=== PATIENT | male | born 1950 | race Caucasian/White ===

== ENCOUNTER 2016-10-04 10:03 | Inpatient (IN) | payer MEDICARE, BC ==
[2016-10-04] MEDS ORDERED: SODIUM CHLORIDE 0.9% 1,000 ML IV ONE (12:01)
[2016-10-04] MEDS ORDERED: PIPERACILLIN/TAZOBACTAM 3.375 GM in SODIUM CHLORIDE 0.9% MINIBAG 100 ML IV STA (14:41)
[2016-10-04] MEDS ORDERED: SODIUM CHLORIDE FLUSH 0.9% 10 ML SYRINGE IVP PRN (14:48)
[2016-10-04] MEDS: LACTATED RINGERS 1,000 ML IV SCH (17:12)
[2016-10-04] MEDS: INSULIN REGULAR HUMAN 100 UNIT/1 ML 10 ML MDV SUBQ SCH ×2 (17:16→23:44)
[2016-10-04] MEDS ORDERED: DOCUSATE SODIUM 250 MG CAPSULE PO SCH (21:00)
[2016-10-04] MEDS: PIPERACILLIN/TAZOBACTAM 3.375 GM in SODIUM CHLORIDE 0.9% MINIBAG 100 ML IV SCH (21:26)
[2016-10-04] MEDS: SODIUM CHLORIDE FLUSH 0.9% 10 ML SYRINGE IVP SCH (21:32)
[2016-10-05] MEDS: LACTATED RINGERS 1,000 ML IV SCH ×4 (03:25→23:28)
[2016-10-05] MEDS: PIPERACILLIN/TAZOBACTAM 3.375 GM in SODIUM CHLORIDE 0.9% MINIBAG 100 ML IV SCH ×4 (03:32→22:01)
[2016-10-05] MEDS: INSULIN REGULAR HUMAN 100 UNIT/1 ML 10 ML MDV SUBQ SCH ×2 (05:42→12:49)
[2016-10-05] MEDS: LOSARTAN 50 MG TABLET PO SCH ×2 (07:43→07:48)
[2016-10-05] MEDS: amLODIPine 5 MG TABLET PO SCH ×2 (07:43→07:48)
[2016-10-05] MEDS: ASPIRIN EC 81 MG TABLET PO SCH ×2 (07:44→16:22)
[2016-10-05] MEDS: SODIUM CHLORIDE FLUSH 0.9% 10 ML SYRINGE IVP SCH ×3 (07:44→22:04)
[2016-10-05] MEDS: CARVEDILOL 3.125 MG TABLET PO SCH ×2 (07:44→07:48)
[2016-10-05] MEDS ORDERED: ACETAMINOPHEN 1,000 MG/100 ML VIAL IV ONE (08:00)
[2016-10-05] MEDS ORDERED: fentaNYL 100 MCG/2 ML VIAL IVP ONE (08:00)
[2016-10-05] MEDS ORDERED: GLYCOPYRROLATE 1 MG/5 ML VIAL IVP ONE (08:00)
[2016-10-05] MEDS ORDERED: ROCURONIUM 50 MG/5 ML VIAL IVP ONE (08:00)
[2016-10-05] MEDS ORDERED: PROPOFOL 200 MG/20 ML VIAL IVP ONE (08:00)
[2016-10-05] MEDS ORDERED: MIDAZOLAM 2 MG/2 ML VIAL IVP ONE (08:00)
[2016-10-05] MEDS ORDERED: NEOSTIGMINE 1 MG/1 ML 10 ML MDV IVP ONE (08:00)
[2016-10-05] MEDS ORDERED: KETOROLAC 30 MG/ML VIAL IVP ONE (08:00)
[2016-10-05] MEDS ORDERED: LIDOCAINE-MPF 2% 5 ML VIAL IM ONE (08:00)
[2016-10-05] MEDS ORDERED: ePHEDrine 50 MG/ML VIAL IVP ONE (08:00)
[2016-10-05] MEDS ORDERED: ONDANSETRON 4 MG/2 ML VIAL IVP ONE (08:00)
[2016-10-05] MEDS ORDERED: POTASSIUM CHLORIDE 20 MEQ TABLET PO ONE (08:45)
[2016-10-05] MEDS ORDERED: FINASTERIDE 5 MG TABLET PO SCH ×2 (09:00→21:00)
[2016-10-05] MEDS ORDERED: TAMSULOSIN 0.4 MG CAPSULE PO SCH ×2 (09:00→21:00)
[2016-10-05] MEDS ORDERED: BUPIVACAINE 0.5%-EPI 1:200000 PF 30 ML VIAL SUBQ ONE ×2 (09:03)
[2016-10-05] MEDS ORDERED: LACTATED RINGERS 1,000 ML IV ONE (09:04)
[2016-10-05] MEDS ORDERED: IOTHALAMATE MEGLUMINE 50 ML VIAL IVP ONE (10:30)
[2016-10-05] MEDS: oxyCOD/ACETAMIN 5 MG/325 MG TABLET PO PRN ×2 (12:51→21:25)
[2016-10-05] MEDS: INSULIN ASPART 300 UNIT/3 ML PEN SUBQ SCH ×2 (17:14→21:26)
[2016-10-05] MEDS ORDERED: CALCIUM CARBONATE CHEW 500 MG TABLET PO PRN (21:40)
[2016-10-06] MEDS: PIPERACILLIN/TAZOBACTAM 3.375 GM in SODIUM CHLORIDE 0.9% MINIBAG 100 ML IV SCH ×3 (04:24→16:54)
[2016-10-06] MEDS: LACTATED RINGERS 1,000 ML IV SCH (04:24)
[2016-10-06] MEDS: SODIUM CHLORIDE FLUSH 0.9% 10 ML SYRINGE IVP SCH ×2 (04:24→13:36)
[2016-10-06] MEDS: oxyCOD/ACETAMIN 5 MG/325 MG TABLET PO PRN (04:33)
[2016-10-06] MEDS: LOSARTAN 50 MG TABLET PO SCH (08:43)
[2016-10-06] MEDS: CARVEDILOL 3.125 MG TABLET PO SCH (08:43)
[2016-10-06] MEDS: ASPIRIN EC 81 MG TABLET PO SCH ×2 (08:43→16:43)
[2016-10-06] MEDS: amLODIPine 5 MG TABLET PO SCH (08:43)
[2016-10-06] MEDS: INSULIN ASPART 300 UNIT/3 ML PEN SUBQ SCH ×2 (08:49→12:00)
[2016-10-06] MEDS ORDERED: POTASSIUM CHLORIDE 20 MEQ TABLET PO ONE (09:45)
[2016-10-06] MEDS ORDERED: DOCUSATE SODIUM 250 MG CAPSULE PO SCH (10:00)
[2016-10-06] MEDS ORDERED: SENNA 8.6 MG TABLET PO SCH (10:00)
[2016-10-06] MEDS ORDERED: POLYETHYLENE GLYCOL 3350 17 GM PACKET PO SCH (10:00)
[2016-10-06] MEDS ORDERED: INSULIN ASPART 300 UNIT/3 ML PEN SUBQ SCH (17:00)
== END 2016-10-06 18:00 | disposition home or self-care (01) | DRG 853 ==
PROC: 0FT44ZZ Resection of Gallbladder, Percutaneous Endoscopic Approach (ICD-10-PCS; principal; 2016-10-05 08:00)
DX: A41.9 Sepsis, unspecified organism (principal); E86.0 Dehydration; K82.2 Perforation of gallbladder; E11.9 Type 2 diabetes mellitus without complications; K65.3 Choleperitonitis; K80.00 Calculus of gallbladder with acute cholecystitis without obstruction; E87.6 Hypokalemia; Z79.84 Long term (current) use of oral hypoglycemic drugs; E11.65 Type 2 diabetes mellitus with hyperglycemia; I10 Essential (primary) hypertension; E78.5 Hyperlipidemia, unspecified; N40.0 Benign prostatic hyperplasia without lower urinary tract symptoms; I25.10 Atherosclerotic heart disease of native coronary artery without angina pectoris; Z95.5 Presence of coronary angioplasty implant and graft; Z79.82 Long term (current) use of aspirin; Z79.899 Other long term (current) drug therapy; Z87.891 Personal history of nicotine dependence

== ENCOUNTER 2016-10-07 04:33 | Emergency (ER) | payer MEDICARE, BC | END 2016-10-07 05:42 | disposition home or self-care (01) | DX: R33.9 Retention of urine, unspecified (principal); I10 Essential (primary) hypertension; E11.9 Type 2 diabetes mellitus without complications; N40.0 Benign prostatic hyperplasia without lower urinary tract symptoms; Z79.82 Long term (current) use of aspirin; Z98.890 Other specified postprocedural states; Z90.49 Acquired absence of other specified parts of digestive tract; Z95.5 Presence of coronary angioplasty implant and graft; Z79.84 Long term (current) use of oral hypoglycemic drugs; Z87.891 Personal history of nicotine dependence ==

== ENCOUNTER 2016-10-31 11:21 | Outpatient (CLI) | payer MEDICARE, BC | END 2016-10-31 11:22 | disposition home or self-care (01) | DX: Z90.49 Acquired absence of other specified parts of digestive tract (principal) ==

== ENCOUNTER 2016-11-26 14:18 | Outpatient (CLI) | payer MEDICARE, BC | END 2016-11-26 14:19 | LOC: LAB.R 14:18 | PROVIDERS: ATTEND Surgery | DX: Z90.49 Acquired absence of other specified parts of digestive tract (principal) | CPT/HCPCS: 83013 ==

== ENCOUNTER 2021-11-28 08:27 | Outpatient (CLI) | payer MEDICARE, BC ==
[2021-11-28 14:58] LABS: CREATININE,URINE 62.2 mg/dL; MICROALBUM/CREATININE RATIO,UR 17.7 ug/mg (<30.0); MICROALBUMIN,URINE 1.1 mg/dL (0-300.0)
[2021-11-28 15:25] LABS: ALBUMIN 4.3 g/dL (3.2-5.5); ALBUMIN/GLOBULIN RATIO 1.5 (1.0-2.2); ALKALINE PHOSPHATASE 67 IU/L (42-121); ALT ALANINE AMINOTRANSFERASE 29 IU/L (10-60); AST ASPARTATE AMINOTRANSFERASE 27 IU/L (10-42); BILIRUBIN,TOTAL 1.2 mg/dL (0.2-1.0); BUN - BLOOD UREA NITROGEN 21 mg/dL (6-20); CALCIUM 9.8 mg/dL (8.5-10.3); CARBON DIOXIDE - CO2 30 mmol/L (21-32); CHLORIDE 97 mmol/L (101-111); CHOL/HDL RATIO 2.7 (<5.0); CHOLESTEROL 116 mg/dL; CREATININE 1.1 mg/dL (0.6-1.2); GFR - MDRD 66 (>89); GLUCOSE 110 mg/dL (70-100); HDL CHOLESTEROL 43 mg/dL; LDL CHOLESTEROL,CALCULATED 48 mg/dL; LDL/HDL RATIO 1.1 (<3.6); POTASSIUM 4.4 mmol/L (3.5-5.0); SODIUM 139 mmol/L (135-145); THYROID STIMULATING HORMONE 1.75 uIU/mL (0.34-5.60); TOTAL PROTEIN 7.1 g/dL (6.7-8.2); TRIGLYCERIDES 124 mg/dL; VLDL CHOLESTEROL 25 mg/dL
[2021-11-28 15:26] LABS: FREE T4 (FREE THYROXINE) 0.79 ng/dL (0.58-1.64)
[2021-11-28 20:44] LABS: ESTIMATED AVERAGE GLUCOSE 154 mg/dL (70-100)
== END 2021-11-28 08:28 | disposition home or self-care (01) ==
LOC: LAB.S 08:27
PROVIDERS: ATTEND Nurse Practitioner
DX: E11.59 Type 2 diabetes mellitus with other circulatory complications (principal)
CPT/HCPCS: 36415; 80053; 80061; 82043; 82570; 83036; 83721; 84439; 84443

== ENCOUNTER 2024-01-28 02:04 | Outpatient (CLI) | payer MEDICARE, BC | END 2024-01-28 02:05 | disposition EMS.NT | LOC: EMS 02:04 | DX: R07.9 Chest pain, unspecified (principal) ==

== ENCOUNTER 2024-01-28 03:00 | Emergency (ER) | payer MEDICARE, BC ==
--- NOTE | 2024-01-28 03:15 | ED Physician Documentation ---
PD HPI CHEST PAIN - Stated complaint Stated Complaint: CHEST PX - History obtained from History obtained from: Patient - Additional information Additional information: 73-year-old male with history of [id number] diabetes, hypertension, coronary artery disease (single stent placed 2006) presents by EMS from home for chest pain. Patient states that he was just about to go to bed around midnight when he noticed his pain. Pain was across his back and his chest, constant, did not radiate. Took 4 aspirin at home. Paramedics arrived around 2 AM, pain dissipated shortly before paramedics arrived. Blood glucose 126 on arrival, EKG sinus rhythm without obvious ischemic changes. Patient currently pain-free. Patient follows with Dr. Raj Raman of [facility] cardiology, last seen March 2023 Review of Systems Constitutional: denies: Fever, Chills Cardiac: reports: Chest pain / pressure. denies: Palpitations Respiratory: denies: Dyspnea, Cough, Wheezing GI: denies: Abdominal Pain, Nausea, Vomiting, Constipation, Diarrhea PD PAST MEDICAL HISTORY - Past Medical History Cardiovascular: Hypertension, High cholesterol Endocrine/Autoimmune: Type 2 diabetes : Benign prostate hypertrophy Musculoskeletal: Gout - Past Surgical History Past Surgical History: Yes Ortho: Rotator cuff repair Cardiovascular: Coronary stent, Cardiac catheterization - Present Medications Home Medications: Ambulatory Orders Medication Instructions Recorded Confirmed Aspirin [Aspir 81] 81 mg PO DAILY 12/20/12 01/28/24 [place]-3 Fatty Acids [[place]-3] 1 tab PO BID 12/20/12 01/28/24 Amlodipine Besylate/Valsartan 1 each PO DAILY 01/28/24 01/28/24 [Amlodipine-Valsartan 10-320 mg] Atorvastatin Calcium 40 mg PO DAILY 01/28/24 01/28/24 Canagliflozin [Invokana] 100 mg PO DAILY 01/28/24 01/28/24 Cholecalciferol [Vitamin D3] See Rx Instructions .ROUTE .COMPLEX 01/28/24 01/28/24 Ezetimibe [Zetia] 10 mg PO DAILY 01/28/24 01/28/24 Finasteride [Proscar] 5 mg PO DAILY 01/28/24 01/28/24 Glipizide [Glipizide ER] 5 mg PO DAILY 01/28/24 01/28/24 Liraglutide [Victoza 2-Jay] 1.8 mg SQ DAILY 01/28/24 01/28/24 Magnesium 250 mg PO DAILY 01/28/24 01/28/24 Metformin HCl 1,000 mg PO BID 01/28/24 01/28/24 Silodosin 8 mg PO DAILY 01/28/24 01/28/24 Turmeric See Rx Instructions .ROUTE .COMPLEX 01/28/24 01/28/24 allopurinoL [Allopurinol] 300 mg PO DAILY 01/28/24 01/28/24 carvediloL [Coreg] 40 mg PO DAILY 01/28/24 01/28/24 - Allergies Allergies/Adverse Reactions: Allergies Allergy/AdvReac Type Severity Reaction Status Date / Time smallpox vaccine,live Allergy Severe Anaphylaxis Verified 01/28/24 03:20 Influenza Virus Vaccines Allergy Unknown Verified 01/28/24 03:41 - Social History Does the pt smoke?: No Smoking Status: Former smoker Does the pt drink ETOH?: Yes Does the pt have substance abuse?: No - Immunizations Immunizations are current?: Yes - POLST Patient has POLST: No PD ED PE NORMAL - Vitals Vital signs reviewed: Yes - General General: Alert and oriented X 3, No acute distress, Well developed/nourished - Cardiac Cardiac: RRR, Strong equal pulses - Respiratory Respiratory: No respiratory distress, Clear bilaterally - Abdomen Abdomen: Soft, Non tender, Non distended - Derm Derm: Normal color, Warm and dry, No rash - Extremities Extremities: No deformity, No tenderness to palpate, Normal ROM s pain, No edema - Neuro Neuro: Alert and oriented X 3, auricular therapist 2-12 intact, No motor deficit, Normal speech - Psych Psych: Normal mood, Normal affect Results - Vitals Vitals: Oxygen O2 Source Room air - Labs Labs: Laboratory Tests 01/28/24 01/28/24 01/28/24 03:16 03:16 03:16 WBC 5.5 RBC 4.42 L Hgb 14.0 Hct 42.9 MCV 97.1 H MCH 31.7 H MCHC 32.6 RDW 13.9 Plt Count 184 MPV 10.4 Neut # (Auto) 3.4 Lymph # (Auto) 1.4 L [place] # (Auto) 0.5 Eos # (Auto) 0.1 Baso # (Auto) 0.0 Absolute Nucleated RBC 0.00 Nucleated RBC % 0.0 PT 10.8 INR 1.0 APTT 27.9 Sodium 140 Potassium 3.7 Chloride 103 Carbon Dioxide 29 Anion Gap 8.0 BUN 25 H Creatinine 1.0 Estimated GFR (MDRD) 73 L Glucose 163 H Calcium 10.1 Magnesium Total Bilirubin 0.6 AST 19 ALT 20 Alkaline Phosphatase 85 Troponin I High Sens Total Protein 6.4 Albumin 4.4 Globulin 2.0 L Albumin/Globulin Ratio 2.2 01/28/24 01/28/24 01/28/24 03:16 05:20 12:16 WBC RBC Hgb Hct MCV MCH MCHC RDW Plt Count MPV Neut # (Auto) Lymph # (Auto) [place] # (Auto) Eos # (Auto) Baso # (Auto) Absolute Nucleated RBC Nucleated RBC % PT INR APTT 59.2 H Sodium Potassium Chloride Carbon Dioxide Anion Gap BUN Creatinine Estimated GFR (MDRD) Glucose Calcium Magnesium 1.9 Total Bilirubin AST ALT Alkaline Phosphatase Troponin I High Sens 55.1 H* 279.5 H* Total Protein Albumin Globulin Albumin/Globulin Ratio 01/28/24 01/28/24 15:16 17:12 WBC RBC Hgb Hct MCV MCH MCHC RDW Plt Count MPV Neut # (Auto) Lymph # (Auto) [place] # (Auto) Eos # (Auto) Baso # (Auto) Absolute Nucleated RBC Nucleated RBC % PT INR APTT > 240.0 H* Sodium Potassium Chloride Carbon Dioxide Anion Gap BUN Creatinine Estimated GFR (MDRD) Glucose Calcium Magnesium Total Bilirubin AST ALT Alkaline Phosphatase Troponin I High Sens 985.0 H* Total Protein Albumin Globulin Albumin/Globulin Ratio PD Medical Decision Making - ED course Complexity details: reviewed results, re-evaluated patient, considered differential, d/w patient ED course: Well-appearing patient with chest pain 3 hours ago, none currently. 324 of aspirin prior to arrival. EKG sinus rhythm, no obvious ST-T wave elevations to suggest acute ischemia. Laboratory work and imaging to be obtained. Initial troponin 55. Patient has continued to be chest pain-free while in the emergency department. Will order 2-hour troponin and reassess need for transfer at that time. 2-hour troponin 245, significant increase from prior. Heparin bolus and drip ordered. Patient is in agreement to transfer. Dr. Romo of cardiology accepts, however there are no available beds. Will keep on list in meantime. Care of patient signed out to daytime physician Departure - Departure Disposition: 02 Transfer Acute Care Hosp Clinical Impression: NSTEMI (non-ST elevated myocardial infarction) Condition: Serious Forms: PCP List Discharge Date/Time: 01/28/24 22:52
[2024-01-28 03:25] LABS: BASOPHILS % (AUTO) 0.6 %; EOSINOPHILS # (AUTO) 0.1 10^3/uL (0.0-0.7); EOSINOPHILS % (AUTO) 1.3 %; HCT - HEMATOCRIT 42.9 % (42.0-52.0); LYMPHOCYTES # (AUTO) 1.4 10^3/uL (1.5-3.5); LYMPHOCYTES % (AUTO) 26.4 %; MEAN CORPUSCULAR HEMOGLOBIN 31.7 pg (27.0-31.0); MEAN CORPUSCULAR HGB CONC 32.6 g/dL (32.0-36.0); MEAN CORPUSCULAR VOLUME 97.1 fL (80.0-94.0); MEAN PLATELET VOLUME 10.4 fL (7.4-11.4); MONOCYTES # (AUTO) 0.5 10^3/uL (0.0-1.0); MONOCYTES % (AUTO) 9.2 %; NEUTROPHILS # (AUTO) 3.4 10^3/uL (1.5-6.6); NEUTROPHILS % (AUTO) 62.1 %; PLT - PLATELET COUNT 184 10^3/uL (130-450); RED BLOOD COUNT 4.42 10^6/uL (4.70-6.10); RED CELL DISTRIBUTION WIDTH 13.9 % (12.0-15.0); WHITE BLOOD COUNT 5.5 x10^3/uL (4.8-10.8)
[2024-01-28 03:34] LABS: PARTIAL THROMBOPLASTIN TIME 27.9 secs (24.9-33.3)
[2024-01-28 03:38] LABS: PT - PROTHROMBIN TIME 10.8 secs (9.9-12.6)
[2024-01-28 03:45] LABS: ALBUMIN 4.4 g/dL (3.2-5.5); ALBUMIN/GLOBULIN RATIO 2.2 (1.0-2.2); BILIRUBIN,TOTAL 0.6 mg/dL (0.2-1.0); CALCIUM 10.1 mg/dL (8.5-10.3); POTASSIUM 3.7 mmol/L (3.5-4.5); TOTAL PROTEIN 6.4 g/dL (6.4-8.9)
[2024-01-28 03:50] LABS: TROPONIN I HIGH SENSITIVITY 55.1 ng/L (2.3-19.7)
[2024-01-28 03:57] LABS: MAGNESIUM 1.9 mg/dL (1.7-2.3)
[2024-01-28] MEDS: HEPARIN 25000UNITS/500ML (D5W) 25,000 UNIT/500 ML BAG IV SCH (06:16)
--- NOTE | 2024-01-28 09:58 | XRAY Report ---
PROCEDURE: Chest 1V INDICATIONS: chest pain TECHNIQUE: One view of the chest was acquired. COMPARISON: None. FINDINGS: Surgical changes and devices: None. Lungs and pleura: Left lower lobe opacity as well as retrocardiac opacity. Mediastinum: Mediastinal contours appear normal. Heart size is enlarged. Bones and chest wall: No suspicious bony lesions. Overlying soft tissues appear unremarkable. IMPRESSION: Left lower lobe opacity suspicious for pneumonia. Recommend interval follow-up to document resolution . The above findings are concordant with preliminary report. Reviewed by: Cira Garcia MD on 01/28/2024 9:57 AM PDT Approved by: Cira Garcia MD on 01/28/2024 9:57 AM PDT Station ID: [id number]
[2024-01-28] MEDS ORDERED: ACETAMINOPHEN 500 MG TABLET PO PRN (14:53)
--- NOTE | 2024-01-28 17:22 | ED Physician Documentation ---
ED Addendum - Addendum Addendum: 01/28/24 17:22 Excepted at this time by Dr. Maury Bowling to [facility] after discussion. He is stable for transport and cobras are completed. Diagnosis: 1. Non-STEMI Condition serious but stable 01/28/24 17:53 I was notified at this time that the nurse had increased his heparin drip not by 1 unit/kg/h but by his weight in kilograms per hour. i.e 77 units/kg/h. We will draw stat PTT and the heparin has been paused. 01/28/24 20:01 PTT too high to calculate. The heparin drip remains off. The half-life of heparin is 60 to 90 minutes So would need to come down by at least 2 half-lives I think so plan to recheck PTT approximately 10 PM, If he is still here at that time. 01/28/24 22:11 I am notified that he is leaving in short order so do not see any reason to recheck the PTT now as it would be resulted during transport.
[2024-01-28] MEDS: METOPROLOL TARTRATE 25 MG TABLET PO SCH (21:03)
[2024-01-28] MEDS: ATORVASTATIN 40 MG TABLET PO SCH (21:03)
[2024-01-28] MEDS: ONDANSETRON 4 MG/2 ML VIAL IVP PRN (22:48)
[2024-01-28 22:54] VITALS: BP 164/43; O2SAT 96
[2024-01-29] MEDS ORDERED: PANTOPRAZOLE 40 MG TABLET PO SCH (07:00)
[2024-01-29] MEDS ORDERED: ASPIRIN CHEW 81 MG TABLET PO SCH (09:00)
== END 2024-01-28 22:52 | disposition short-term general hospital (02) ==
LOC: ED 03:00
DX: I21.4 Non-ST elevation (NSTEMI) myocardial infarction (principal); I10 Essential (primary) hypertension; E11.9 Type 2 diabetes mellitus without complications; I25.10 Atherosclerotic heart disease of native coronary artery without angina pectoris; E78.00 Pure hypercholesterolemia, unspecified; N40.0 Benign prostatic hyperplasia without lower urinary tract symptoms; Z79.82 Long term (current) use of aspirin; Z79.4 Long term (current) use of insulin; Z79.84 Long term (current) use of oral hypoglycemic drugs; Z79.899 Other long term (current) drug therapy
CPT/HCPCS: 36415; 71045; 80053; 83735; 84484; 85025; 85610; 85730; 93005; 96374; 96375; 99284; 99285; A9270